=== PATIENT | female | born 1995 | race Caucasian/White ===

== ENCOUNTER 2018-02-22 22:09 | Emergency (ER) | payer OTHER ==
[~2018-02-22] VITALS: Ht 165.1 cm; Wt 54.4 kg
[2018-02-22] MEDS ORDERED: PREDNISONE50 MG PO (23:53)
[2018-02-22] MEDS ORDERED: DIPHENHIST50 MG PO (23:53)
[2018-02-23] VITALS: BP 107/72
== END 2018-02-23 | disposition home or self-care (01) ==
LOC: M.ERS 22:09
DX: T78.49XA Other allergy, initial encounter (principal); R21 Rash and other nonspecific skin eruption; X58.XXXA Exposure to other specified factors, initial encounter; F17.200 Nicotine dependence, unspecified, uncomplicated

== ENCOUNTER 2018-04-25 14:18 | Emergency (ER) | payer OTHER ==
[~2018-04-25] VITALS: Ht 165.1 cm; Wt 56.7 kg
[~2018-04-25 14:18] MED LIST: DIPHENHIST50 MG PO; PREDNISONE50 MG PO
[2018-04-25 15:20] LABS: URINE BILIRUBIN NEGATIVE (Negative); URINE BLOOD 3+ (Negative); URINE CLARITY CLEAR; URINE COLOR YELLOW; URINE GLUCOSE-RANDOM NEGATIVE (Negative); URINE KETONES NEGATIVE (Negative); URINE LEUKOCYTES-REFLEX TRACE (Negative); URINE NITRITE-REFLEX NEGATIVE (Negative); URINE PROTEIN TRACE (Negative); URINE SPECIFIC GRAVITY 1.025 (1.005-1.030)
[2018-04-25 15:42] LABS: ABSOLUTE BASOPHILS 0.1 thou/uL (0.0-0.2); ABSOLUTE EOSINOPHILS 0.1 thou/uL (0.0-0.7); ABSOLUTE LYMPHOCYTES 2.9 thou/uL (0.8-5.3); ABSOLUTE MONOCYTES 0.7 thou/uL (0.0-1.2); ABSOLUTE NEUTROPHILS 5.9 thou/uL (1.6-8.1); BASOPHILS 0.9 %; EOSINOPHILS 0.8 %; HEMATOCRIT 41.5 % (37.0-47.0); HEMOGLOBIN 13.7 gm/dL (12.0-15.0); LYMPHOCYTES 30.1 %; MCH 28.8 pg (26.0-34.0); MCV 87.1 fL (80.0-100.0); MONOCYTES 7.6 %; MPV 7.6 fl. (7.2-11.1); NUCLEATED RBCS 0 /100WBC; PLATELET COUNT* 318 thou/uL (150-400); POLYS 60.6 %; RBC 4.77 mil/uL (4.20-5.00); RDW-CV 14.4 % (10.5-14.5); WBC 9.7 thou/uL (4.0-11.0)
[2018-04-25 15:47] LABS: BACTERIA-REFLEX 1-9 Few /HPF (None Seen); SQUAMOUS 4-10 Moderate /LPF (0-3); URINE RBC 3-10 Few /HPF (0-2); URINE WBC-REFLEX 6-15 Few /HPF (0-5)
[2018-04-25 15:48] LABS: CASTS None Seen /LPF (None Seen); CRYSTALS None Seen /LPF (None Seen); MUCUS 4-6 Moderate strn/LPF (None Seen)
[2018-04-25 15:58] LABS: CREATININE 0.8 mg/dL (0.6-1.3); POTASSIUM 3.5 mmol/L (3.5-5.1)
[2018-04-25 16:03] LABS: ALBUMIN 3.9 g/dL (3.4-5.0); TOTAL BILIRUBIN 0.3 mg/dL (<0.1-1.0); TOTAL PROTEIN 7.4 g/dL (6.4-8.2)
[2018-04-25] MEDS ORDERED: MACROBID 100 M100 M1 PO (16:54)
[2018-04-25 17:50] VITALS: BP 99/60
== END 2018-04-25 17:51 | disposition home or self-care (01) ==
LOC: M.ERS 14:18
PROVIDERS: Nurse Practitioner Family
DX: O46.91 Antepartum hemorrhage, unspecified, first trimester (principal); O23.41 Unspecified infection of urinary tract in pregnancy, first trimester; Z3A.01 Less than 8 weeks gestation of pregnancy